=== PATIENT | female | born 1985 | race African-American/Black ===

== ENCOUNTER 2016-08-01 23:11 | Emergency (ER) | payer OTHER ==
[~2016-08-01] VITALS: Ht 160 cm; Wt 87.0 kg
[2016-08-01 23:18] VITALS: Ht 160 cm; Wt 87.0 kg
--- NOTE | 2016-08-02 02:21 | ERD ---
ER Documentation Chief Complaint Date/Time DATE: 08/02/16 TIME: 02:17 Chief Complaint Pt reports she cut ear on phone case. abcd intact, nad HPI 31-year-old female presents here in emergency department for complaints of a skin flap laceration wound after a phone case hit her left ear. Patient complaining of pain, sharp pain, 4/10 was up and touching the area, bleeding is controlled at this time. Patient did not take any medications for pain. Patient last tetanus immunization was 3 years ago. ROS All systems reviewed and are negative except as per history of present illness. Medications Home Meds Reported Medications [none] Unknown Strength No Conflict Check 08/02/16 Allergies Allergies: Coded Allergies: No Known Allergy (Unverified , 08/01/16) PMhx/Soc Last immunization was 3 years ago. Medical and Surgical Hx: pt denies Medical Hx, pt denies Surgical Hx Hx Alcohol Use: No Hx Substance Use: No Hx Tobacco Use: No Smoking Status: Never smoker FmHx Family History: No coronary disease, No diabetes, No other Physical Exam Vitals Vital Signs Date Time Temp Pulse Resp B/P Pulse Ox O2 Delivery O2 Flow Rate FiO2 08/01/16 23:18 99.9 101 20 122/84 97 Physical Exam GENERAL: The patient is well developed and appropriate for usual state of health, in no apparent distress. CHEST: Clear to auscultation bilaterally. There are no rales, wheezes or rhonchi. HEART: Regular rate and rhythm. No murmurs, clicks, rubs or gallops. No S3 or S4. ABDOMEN: Soft, nontender and nondistended. Good bowel sounds. No rebound or guarding. No gross peritonitis. No gross organomegaly or masses. No Disla sign or McBurney point tenderness. BACK: No midline or flank tenderness. EXTREMITIES: Equal pulses bilaterally. There is no peripheral clubbing, cyanosis or edema. No focal swelling or erythema. Full range of motion. Grossly neurovascularly intact. NEURO: Alert and oriented. Cranial nerves 2-12 intact. Motor strength in all 4 extremities with 5/5 strength. Sensation grossly intact. Normal speech and gait. SKIN: Noted skin flap laceration wound in the left ear, upper portion of the pinna, no cartilage involvement, noted superficial laceration one just behind the left ear, 1.5 cm superficial.. There is no apparent rash or petechia. The skin is warm and dry. HEMATOLOGIC AND LYMPHATIC: There is no evidence of excessive bruising or lymphedema. No gross cervical, axillary, or inguinal lymphadenopathy. Results 24 hrs Current Medications Medications (Trade) Dose Ordered Sig/Davy Route PRN Reason Start Time Stop Time Status Last Admin Dose Admin Acetaminophen/ Hydrocodone Bitart ([place] (5/325)) 1 tab ONCE ONCE PO 08/02/16 03:00 08/02/16 03:01 Patient was given medication for pain here in emergency department, after treatment, patient verbalized feeling much better. Patient's pain is improved. Procedures/MDM Procedure Note: After obtaining informed consent, the wound was irrigated with 250 ml of normal saline and cleaned with diluted betadine. Using aseptic technique, the wound was approximated using a dermabond the laceration wound behind the ear, the skin of motion laceration was approximated using Steri-Strips. After the procedure, the wound was well approximated. Patient tolerated procedure well. Medical Decision making: Patient's symptoms most active consistent with a skin flap avulsion laceration and a superficial laceration, this was repaired without any difficulty, the patient had a skin avulsion, unable to repair completely the one in the pinna. Patient does not have any cartilage involvement. Pressure was given for Keflex to prevent infection, ibuprofen and [place] for pain. Patient was advised to have the wound checked in 2 days with primary care doctor or here in emergency department the patient is advised to return to emergency department for any worsening symptoms. Departure Diagnosis: Primary Impression: Skin avulsion Additional Impression: Superficial laceration of scalp Encounter type: initial encounter Qualified Code: S01.01XA - Superficial laceration of scalp, initial encounter Condition: Stable Patient Instructions: Laceration, Face (Skin Glue), Skin Avulsion DARYL MARTI NP Aug 02, 2016 02:21
[2016-08-02] MEDS ORDERED: HYDR-906 PO (02:50)
[2016-08-02] MEDS ORDERED: IBUP-1542 PO (02:50)
[2016-08-02] MEDS ORDERED: CEPH-443 PO (02:50)
[2016-08-02] MEDS ORDERED: HYDROCODONE/APAP (5/325) TAB PO ONE (03:00)
[2016-08-02 03:05] VITALS: BP 130/85; PULSE 79; RESP 20; TEMP 98.9
== END 2016-08-02 03:07 | disposition home or self-care (01) ==
LOC: FTE 23:11
DX: S01.302A Unspecified open wound of left ear, initial encounter (principal); W22.8XXA Striking against or struck by other objects, initial encounter; Y92.9 Unspecified place or not applicable
CPT/HCPCS: 12011; Z7502; Z7610